=== PATIENT | female | born 2000 | race African-American/Black ===

== ENCOUNTER 2022-05-07 12:31 | Emergency (ER) | payer OTHER, SELFPAY ==
[2022-05-07 12:33] VITALS: BP 151/82; PULSE 93; RESP 18; TEMP 36.8; O2SAT 100
--- NOTE | 2022-05-07 12:41 | ED.WOUNDLAC ---
HPI - Wound/Laceration General Chief Complaint: Wound/Laceration Stated Complaint: left thumb laceration Time Seen by Provider: 05/07/22 12:35 Source: patient Mode of arrival: ambulatory Limitations: no limitations History of Present Illness HPI narrative: This is a 21 year old female right hand dominant who presents for evaluation of left thumb laceration. 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 She cut her left thumb on a piece of glass. Her boss placed skin adhesive on her thumb and applied a bandage. There were unable to keep it from bleeding for 15 minutes so she came to ER for evaluation . She denies any pain , numbness. She reports her tetanus is up to date. Related Data Allergies Allergy/AdvReac Type Severity Reaction Status Date / Time salicylic acid Allergy Rash Verified 05/07/22 12:32 Review of Systems Review of Systems: All systems reviewed & are unremarkable except as noted in HPI and below Constitutional: Constitutional: Denies chills and Denies fatigue PMFSH Past Medical History Medical History (Updated 05/07/22 @ 12:50 by Monalisa Garcia MD) Patient denies medical problems Surgical History Surgical History (Updated 05/07/22 @ 12:43 by Monalisa Garcia MD) No pertinent past surgical history Social History Social History (Updated 05/07/22 @ 12:43 by Monalisa Garcia MD) Smoking status: Never smoker Exam Const: General: no acute distress and alert Nutritional Appearance: well nourished Orientation/consciousness: patient oriented x3 Limitations: no limitations HENMT: Face and sinus: normal facial exam Eyes: EOM: EOMs intact bilaterally Resp: Effort & Inspection: normal respiratory effort Skin: General skin exam: normal color Neuro: General: patient oriented x3, moves all extremities and CN's II-XI intact bilaterally Gait exam (Neuro): Normal gait present Extrem: Other: FROM, left thumb with superficial laceration that is not bleeding on pad, and wound with skin adhesive on it Psych: Mental Status: mental status grossly normal Affect: normal affect Course Reevaluation(s) Reevaluation #1: Patient's wound is not bleeding. Will leave alone.I discussed wound care and what to do if rebleeds. Date: 05/07/22 Time: 12:47 Vital Signs Vital signs: Vital Signs Temperature 98.3 F 05/07/22 12:33 Pulse Rate 93 05/07/22 12:33 Respiratory Rate 18 05/07/22 12:33 Blood Pressure 151/82 H 05/07/22 12:33 Pulse Oximetry 100 05/07/22 12:33 Oxygen Delivery Room Air 05/07/22 12:33 Temperature 98.3 F 05/07/22 12:33 Pulse Rate 93 05/07/22 12:33 Respiratory Rate 18 05/07/22 12:33 Blood Pressure 151/82 H 05/07/22 12:33 Pulse Oximetry 100 05/07/22 12:33 Oxygen Delivery Room Air 05/07/22 12:33 Discharge Plan Discharge Clinical Impression: Laceration of thumb, left Qualifiers: Encounter type: initial encounter Damage to nail status: without damage Patient Disposition: Home, Self-Care Condition: Stable Instructions: Antibiotic Form, Laceration (ED), Skin Adhesive Care (ED) Additional Instructions: Today you were evaluated for laceration. Keep your wound clean and dry. Keep covered if in dirty environment. Watch for signs of infection. She notices bleeding , just apply pressure to your wound for 15-20 minutes . Read instructions on skin adhesives Follow-up/Referrals: Casimiro Duvall MD [Physician] - PHYSICIAN,[employer] ROOM OPERATOR [Primary Care Provider] -
== END 2022-05-07 13:12 | disposition home or self-care (01) ==
LOC: ANHED 12:58
PROVIDERS: Emergency Provider General Practice
DX: S61.012A Laceration without foreign body of left thumb without damage to nail, initial encounter (principal); W25.XXXA Contact with sharp glass, initial encounter
CPT/HCPCS: 99282